=== PATIENT | male | born 1965 | race Two or more races ===

== ENCOUNTER 2023-08-23 10:09 | Emergency (ER) | payer OTHER ==
[~2023-08-23] VITALS: Ht 170.2 cm; Wt 100.5 kg
[2023-08-23] MEDS ORDERED: fentaNYL/PF 50MCG/1 ML 2ML syringe IV ONE (13:45)
[2023-08-23] MEDS: LIDOcaine 1% W/epiNEPHrine 1:100,000 20ml vial SQ ONE (13:45)
[2023-08-23] MEDS: ondansetron/PF 4mg/2ml inj IV ONE (13:50)
[2023-08-23] MEDS ORDERED: NO HOME MEDS (13:53)
[2023-08-23] MEDS: ketorolac trometh. 30mg/ml inj. IV ONE (14:41)
[2023-08-23] MEDS ORDERED: propofol 1000mg/100ml bottle 200 ML IV ONE (15:35)
[2023-08-23] MEDS: morphine 4 MG/ML inj SYRINge IV ONE (15:37)
[2023-08-23] MEDS: ketamine 10mg/ml 20ml inj vial IV ONE (15:40)
[2023-08-23] MEDS: midazolam 1 mg/ML 2ml injection IV ONE ×2 (16:35→16:40)
[2023-08-23] MEDS: midazolam 1 mg/ML 2ml injection ONE ×2 (16:36→16:41)
[2023-08-23] MEDS: fentaNYL/PF 50MCG/1 ML 2ML syringe ONE (16:46)
[2023-08-23] MEDS: fentaNYL/PF 50MCG/1 ML 2ML syringe IV ONE ×2 (16:50→18:17)
[2023-08-23] MEDS: MIDAZolam 5mg/ml 2ml vial IV ONE (17:00)
[2023-08-23] MEDS ORDERED: ONDA4TAB12 PO (17:52)
[2023-08-23] MEDS: ketamine 50mg/5ml syringe IV ONE (18:10)
[2023-08-23 19:22] VITALS: BP 150/94; PULSE 84; RESP 12; TEMP 98.2; O2SAT 96
== END 2023-08-23 19:24 | disposition home or self-care (01) ==
LOC: ER 10:09
DX: S43.084A Other dislocation of right shoulder joint, initial encounter (principal); W19.XXXA Unspecified fall, initial encounter; Y93.89 Activity, other specified; Y92.89 Other specified places as the place of occurrence of the external cause; Y99.8 Other external cause status
CPT/HCPCS: 23650; 70450; 71100; 72050; 73020; 73030; 73060; 73080; 73110; 96374; 96375; 96376; 99152; 99153; 99285; J1885; J2250; J2270; J3010; J3490; J7030; 94760; A4565